=== PATIENT | male | born 1955 | race Caucasian/White ===

== ENCOUNTER 2016-11-11 19:23 | Observation (INO) | payer BC ==
--- NOTE | 2016-11-11 19:36 | EDPHY ---
H & P Stated Complaint: dizzy cp tightness Time Seen by Provider: 11/11/16 19:31 HPI/ROS: CHIEF COMPLAINT: Palpitations, dyspnea, dizziness, chest pressure HISTORY OF PRESENT ILLNESS: The patient presents to the ED with several days of palpitations, dyspnea, dizziness and mild chest pressure. The patient states his symptoms began while helping his daughter recover from a medical illness in [place] several days ago. The patient returned today and felt poorly seeking care in the ED this evening. The patient does report a prior history of atrial fibrillation in 2013 which she attributes to dehydration. He was treated with cardioversion at that time. The patient does have a history of hypertension and takes Bystolic. The patient denies history of significant coronary artery disease. Past surgical history noteworthy only for remote history of forearm surgery in 2014. The patient denies any asymmetric calf pain or swelling. The patient denies pleuritic chest pain. He has no history of prolonged immobilization or prior history of PE/DVT. REVIEW OF SYSTEMS: A comprehensive 10 point review of systems is otherwise negative aside from elements mentioned in the history of present illness. Source: Patient - Personal History Current Tetanus/Diphtheria Vaccine: Unsure Current Tetanus Diphtheria and Acellular Pertussis (TDAP): Unsure - Medical/Surgical History Hx Asthma: No Hx Chronic Respiratory Disease: No Hx Diabetes: No Hx Cardiac Disease: No Hx Renal Disease: No Hx Cirrhosis: No Hx Alcoholism: No Hx HIV/AIDS: No Hx Splenectomy or Spleen Trauma: No - Social History Smoking Status: Never smoked - Physical Exam Exam: General Appearance: Alert, no distress Eyes: Pupils equal and round no pallor or injection ENT, Mouth: Mucous membranes moist Respiratory: There are no retractions, lungs are clear to auscultation Cardiovascular: Tachycardic, irregular consistent with atrial fibrillation Gastrointestinal: Abdomen is soft and nontender, no masses, bowel sounds normal Neurological: A&O, normal motor function, normal sensory exam, normal cranial nerves Skin: Warm and dry, no rashes Musculoskeletal: Neck is supple nontender Extremities: symmetrical, full range of motion Constitutional: Initial Vital Signs Temperature (C) 36.8 C 11/11/16 19:26 Heart Rate 98 11/11/16 19:26 Respiratory Rate 18 11/11/16 19:26 Blood Pressure 148/108 H 11/11/16 19:26 O2 Sat (%) 97 11/11/16 19:26 O2 Delivery Mode Nasal Cannula O2 (L/minute) 2 Allergies/Adverse Reactions: Penicillins Allergy (Verified 11/11/16 19:25) Home Medications: Medication Instructions Recorded Aspirin 11/11/16 Bystolic 11/11/16 Medical Decision Making - Diagnostics EKG Interpretation: EKG: Complete interpretation has been separately recorded in the [facility] archive. Summary impression: Atrial fibrillation, rate 143, nonspecific ST T wave changes are noted Imaging Results: Imaging Impressions Chest X-Ray 11/11/16 19:43 Impression: Moderate cardiac enlargement, with pulmonary vascular congestion. ED Course/Re-evaluation: The patient presents to the emergency department with atrial fibrillation with rapid ventricular response. The patient's heart rate is 153. He is noted to have nonspecific ST T wave changes on his EKG. The patient was placed on a potline monitor. The patient received 25 mg of IV diltiazem bolus followed by the initiation of a diltiazem drip. I reviewed the patient's past medical records. The patient was reexamined at 9:00 p.m.. His heart rate is currently in the 90s however he continues to be in atrial fibrillation. The patient does have a slightly elevated proBNP. Chest x-ray demonstrates very mild pulmonary venous congestion. The patient will also be provided a 20 mg dose of IV Lasix. The patient will be admitted to the hospitalist service this evening. I discussed the case with Dr. Florencio Gatica at 9:15 p.m.. The patient was given 120 mg SC Lovenox. The patient will be admitted to the PCU monitored floor this evening. Differential Diagnosis: Differential diagnosis considered includes acute coronary syndrome, atrial fibrillation with rapid ventricular response, ventricular tachycardia, dehydration, pulmonary embolism, congestive heart failure - Data Points Laboratory Results: Laboratory Results 11/11/16 18:46 11/11/16 18:46 11/11/16 11/11/16 11/11/16 18:46 18:46 18:46 WBC 8.43 10^3/uL 10^3/uL (3.80-9.50) RBC 4.64 10^6/uL 10^6/uL (4.40-6.38) Hgb 15.1 g/dL g/dL (13.7-17.5) Hct 43.4 % % (40.0-51.0) MCV 93.5 fL fL (81.5-99.8) MCH 32.5 pg pg (27.9-34.1) MCHC 34.8 g/dL g/dL (32.4-36.7) RDW 13.1 % % (11.5-15.2) Plt Count 186 10^3/uL 10^3/uL (150-400) MPV 9.9 fL fL (8.7-11.7) Neut % (Auto) 69.6 % % (39.3-74.2) Lymph % (Auto) 22.5 % % (15.0-45.0) Campbell % (Auto) 6.2 % % (4.5-13.0) Eos % (Auto) 0.8 % % (0.6-7.6) Baso % (Auto) 0.4 % % (0.3-1.7) Nucleat RBC Rel Count 0.0 % % (0.0-0.2) Absolute Neuts (auto) 5.87 10^3/uL 10^3/uL (1.70-6.50) Absolute Lymphs (auto) 1.90 10^3/uL 10^3/uL (1.00-3.00) Absolute Monos (auto) 0.52 10^3/uL 10^3/uL (0.30-0.80) Absolute Eos (auto) 0.07 10^3/uL 10^3/uL (0.03-0.40) Absolute Basos (auto) 0.03 10^3/uL 10^3/uL (0.02-0.10) Absolute Nucleated RBC 0.00 10^3/uL 10^3/uL (0-0.01) Immature Gran % 0.5 % % (0.0-1.1) Immature Gran # 0.04 10^3/uL 10^3/uL (0.00-0.10) PT 13.8 SEC SEC (12.0-15.0) INR 1.07 (0.83-1.16) D-Dimer TNP Sodium 139 mEq/L mEq/L (134-144) Potassium 3.5 mEq/L mEq/L (3.5-5.2) Chloride 106 mEq/L mEq/L (97-110) Carbon Dioxide 23 mEq/l mEq/l (22-31) Anion Gap 10 mEq/L mEq/L (8-16) BUN 15 mg/dL mg/dL (7-23) Creatinine 1.0 mg/dL mg/dL (0.7-1.3) Estimated GFR > 60 Glucose 103 mg/dL H mg/dL (70-100) Calcium 9.0 mg/dL mg/dL (8.5-10.4) Troponin I < 0.012 ng/mL ng/mL (0-0.034) NT-Pro-B Natriuret Pep 3480 pg/mL H pg/mL (0-125) Medications Given: Discontinued Medications Diltiazem HCl (Cardizem 25 Mg/5 Ml Vial) 25 mg IVP EDNOW ONE Stop: 11/11/16 19:45 Last Admin: 11/11/16 19:53 Dose: 25 mg Sodium Chloride (Ns) 500 mls @ 0 mls/hr IV ONCE ONE PRN Reason: As Directed Stop: 11/11/16 19:44 Last Admin: 11/11/16 19:53 Dose: 500 mls Diltiazem HCl 125 mg/ Dextrose 125 mls @ 0 mls/hr IV EDNOW ONE; Titrate PRN Reason: Protocol Stop: 11/11/16 19:45 Last Admin: 11/11/16 20:10 Dose: 125 mls Departure - Departure Disposition: [facility] Inpatient Acute Clinical Impression: Atrial fibrillation with RVR, Pulmonary edema Condition: Good
--- NOTE | 2016-11-11 19:38 | CPEKG ---
Heart Rate: 153 RR Interval: 392 QRSD Interval: 96 QT Interval: 320 QTC Interval: 511 QRS [place]: 14 T Wave [place]: -44 EKG Severity - ABNORMAL ECG - EKG Impression: ATRIAL FIBRILLATION EKG Impression: REPOLARIZATION ABNORMALITY, PROB RATE RELATED EKG Impression: PROLONGED QT INTERVAL Electronically Signed By: Manjinder Dale 11-Nov-2016 22:09:19
[2016-11-11] MEDS ORDERED: NS 500 ML IV ONE (19:43)
[2016-11-11] MEDS ORDERED: DILTIAZEM 25 MG/5 ML VIAL IVP ONE (19:44)
[2016-11-11] MEDS ORDERED: DILTIAZEM 125 MG in D5W 125 ML IV ONE (19:44)
[2016-11-11 19:57] LABS: % IMMATURE GRANULYOCYTES 0.5 % (0.0-1.1); ABSOLUTE IMMATURE GRANULOCYTES 0.04 10^3/uL (0.00-0.10); ADD DIFF? NO; ADD MORPH? NO; ADD SCAN? NO; ATYPICAL LYMPHOCYTE FLAG 0 (0-99); FRAGMENT RBC FLAG 0 (0-99); HEMATOCRIT 43.4 % (40.0-51.0); HEMOGLOBIN 15.1 g/dL (13.7-17.5); LEFT SHIFT FLG 0 (0-99); LIPEMIA HEMOLYSIS FLAG 90 (0-99); MEAN CELL HEMOGLOBIN 32.5 pg (27.9-34.1); MEAN CELL HEMOGLOBIN CONCENTR. 34.8 g/dL (32.4-36.7); MEAN CELL VOLUME 93.5 fL (81.5-99.8); MEAN PLATELET VOLUME 9.9 fL (8.7-11.7); PLATELET CLUMPS FLAG 10 (0-99); PLATELET COUNT 186 10^3/uL (150-400); RED BLOOD CELL COUNT 4.64 10^6/uL (4.40-6.38); RED CELL DISTRIBUTION WIDTH 13.1 % (11.5-15.2)
[2016-11-11 20:06] LABS: ANION GAP 10 mEq/L (8-16); CARBON DIOXIDE 23 mEq/l (22-31); CHLORIDE 106 mEq/L (97-110); GLOMERULAR FILTRATION RATE > 60; GLUCOSE 103 mg/dL (70-100); POTASSIUM 3.5 mEq/L (3.5-5.2); SODIUM 139 mEq/L (134-144)
[2016-11-11 20:17] LABS: TROPONIN I < 0.012 ng/mL (0-0.034)
[2016-11-11] MEDS ORDERED: FUROSEMIDE 20 MG/2 ML VIAL ONE (21:05)
[2016-11-11 21:06] LABS: INR 1.07 (0.83-1.16); PROTIME(PATIENT) 13.8 SEC (12.0-15.0)
[2016-11-11] MEDS ORDERED: ONDANSETRON 4 MG/2 ML VIAL IVP PRN (23:28)
[2016-11-11] MEDS ORDERED: ONDANSETRON DISINTEGRATING 4 MG TAB PO PRN (23:28)
[2016-11-11] MEDS ORDERED: ACETAMINOPHEN 325 MG TAB PO PRN (23:28)
[2016-11-11] MEDS ORDERED: DILTIAZEM 125 MG in D5W 125 ML IV SCH (23:30)
[2016-11-11] MEDS ORDERED: hydrALAZINE 25 MG TAB PO PRN (23:33)
[2016-11-11] MEDS ORDERED: ENOXAPARIN 120 MG/0.8 ML SYR SC ONE (23:45)
--- NOTE | 2016-11-12 00:09 | GHP ---
[f rep st] HISTORY AND PHYSICAL DATE OF ADMISSION: 11/11/2016 CHIEF COMPLAINT: Atrial fibrillation with RVR. HISTORY OF PRESENTING ILLNESS: The patient is a pleasant 60-year-old male with history of paroxysmal atrial fibrillation, hypertension, presenting with shortness of breath, chest pressure and dizziness since . He says he has felt symptoms since of being in atrial fib. He was in [place] helping his daughter with a surgery, thus, was not able to seek medical care up until today. He felt his heart racing. Denies overt chest pain with radiation or diaphoresis. The last episode of atrial fibrillation was in 2012; at that time, he was cardioverted. Denies any fevers, chills, or sweats. Denies lower extremity edema, PND or orthopnea. REVIEW OF SYSTEMS: I completed a 10-point review of systems, negative except as noted in HPI. PAST MEDICAL HISTORY: 1. Hypertension. 2. Paroxysmal atrial fibrillation. [id number] score 1. Cardioversion 2012. 3. Nosebleeds requiring cauterization several months ago. PAST SURGICAL HISTORY: 1. 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 2. Bone spur. 3. Tonsillectomy. SOCIAL HISTORY: Lives in [place] with his . Social alcohol. No tobacco or illicits. FAMILY HISTORY: Father with cancer. ALLERGIES: Penicillin. HOME MEDICATIONS: Aspirin 81 mg daily. Bystolic 10. Losartan 100. Norvasc 10. Spironolactone 25. PHYSICAL EXAM: VITAL SIGNS: Temperature 37.1, blood pressure 148/108, heart rates 100 to 150s, respirations 18, 98% on room air. GENERAL: Male sitting in bed, no acute distress. HEENT: PERRLA, EOMI. Oropharynx clear. CV: Irregularly irregular. No murmurs, gallops, or rubs. +2 lower extremity edema. LUNGS: No crackles bilaterally. ABDOMEN: Soft, nontender, nondistended. Positive bowel sounds. : No suprapubic tenderness. No Richardson. MUSCULOSKELETAL: 5/5 upper and lower extremity strength. Large surgical scar, graft site on left forearm, partial amputation of left thumb. NEURO: 2 through 12 intact. PSYCH: Alert and oriented x3. LABS: WBC is 8, hemoglobin 15, hematocrit 43, platelets 186. Coags within normal. Sodium 139, potassium 3.5, chloride 106, carbon dioxide 23, BUN 15, creatinine 1, glucose 103, calcium 9. Troponin less than 0.02. BNP is 3480. EKG is personally reviewed by me: Atrial fibrillation with a heart rate of 150. Chest x-ray is personally reviewed by me: Mild pulmonary congestion. ASSESSMENT AND PLAN: 1. Atrial fibrillation with rapid ventricular response: last episode was in 2012 and cardioverted then. Continue diltiazem drip overnight, have Cardiology evaluate. Check TSH and echocardiogram. [id number] score is 1. He is currently on an aspirin, but can argue full anticoagulation with recurrence. Lovenox overnight. Troponin is negative. 2. Accelerated hypertension. Continue home medications. 3. Volume overload: suspect due to rapid atrial fibrillation. TTE pending. Dosed Lasix in ER and will give another dose in the morning. Monitor electrolytes. 4. Diet: Cardiac, low salt. 5. DVT prophylaxis: On Lovenox. 6. Disposition: Patient warrants observation admission given atrial fibrillation requiring cardiac monitoring, diltiazem drip and IV Lasix. /[id number]/MODL MTDD
[2016-11-12 05:28] LABS: ANION GAP 9 mEq/L (8-16); CALCIUM 8.7 mg/dL (8.5-10.4); CARBON DIOXIDE 27 mEq/l (22-31); CHLORIDE 106 mEq/L (97-110); CREATININE 0.9 mg/dL (0.7-1.3); GLOMERULAR FILTRATION RATE > 60; GLUCOSE 94 mg/dL (70-100); MAGNESIUM 2.1 mg/dL (1.6-2.3); POTASSIUM 3.4 mEq/L (3.5-5.2); SODIUM 142 mEq/L (134-144)
[2016-11-12] MEDS ORDERED: PROTOCOL POTASSIUM 1 DOSE MISC PRN (08:54)
[2016-11-12] MEDS ORDERED: FUROSEMIDE 20 MG/2 ML VIAL IVP SCH (09:00)
[2016-11-12] MEDS ORDERED: OMEGA-3 FATTY ACIDS 1,000 MG CAP PO SCH (09:00)
[2016-11-12] MEDS ORDERED: ENOXAPARIN 120 MG/0.8 ML SYR SC SCH (09:00)
[2016-11-12] MEDS ORDERED: ASPIRIN 81 MG CHEWABLE TAB PO SCH (09:00)
[2016-11-12] MEDS ORDERED: NEBIVOLOL HCL 5 MG TAB PO SCH (09:00)
[2016-11-12] MEDS ORDERED: SPIRONOLACTONE 25 MG TAB PO SCH (09:00)
[2016-11-12] MEDS ORDERED: Herbals/Supplements -Info Only PO SCH (09:00)
[2016-11-12] MEDS ORDERED: GLUCOSAMINE SULF 500 MG CAP PO SCH (09:00)
[2016-11-12] MEDS ORDERED: LOSARTAN POTASSIUM 50 MG TAB PO SCH ×2 (09:00)
[2016-11-12] MEDS ORDERED: POTASSIUM CL 10 MEQ TAB PO ONE ×3 (09:23→20:18)
--- NOTE | 2016-11-12 10:09 | HOSPPROG ---
Hospitalist Progress Note Assessment/Plan: DIAGNOSES: -atrial fibrillation with rapid ventricular rate -acute congestive heart failure due to arrhythmia, question if any other new anatomic or functional heart abnormalities The patient comes in with reasonably good rate control on beta pee. It is unclear why he has had as much trouble with this atrial fibrillation given good heart rate and previously normal heart function otherwise. It will be important to see if there is any new change in heart anatomy are function so echocardiogram is pending. I reviewed with Dr. Santana Saunders he will review this and visit with the patient. If there is no new fixable functional anatomic change, then he probably is not going to tolerate atrial fibrillation with rate control and an antiarrhythmic would be important. Sotalol would be reasonable given his age in overall good health. PLANS: Await echocardiogram and review that with Dr. Saunders and the patient Further decisions after the echocardiogram: Is possible that either cardioversion anti rhythmic would be a good plan, with the other option being an ablation procedure. If there is some abnormality on the echo there may be other medical or other interventions. SUBJECTIVE: Feels better with less shortness of breath and less chest tightness today No palpitations OBJECTIVE Vitals reviewed: Heart rate has been between mid 90s and 105 fairly steadily, normal blood pressure respirations no fever Gang Rider, my review: Atrial fibrillation with mildly elevated heart rate He has a net diuresis of 1500 mL overnight Exam: alert oriented skin warm dry color ok resps not labored lungs clear BSs heart irregular abd soft nondistended nontender, bowel sounds present limbs warm, no edema iv site ok Lab data potassium a bit low today 3.4 likely due to diuretic Objective: Vital Signs Temp Pulse Resp BP Pulse Ox 36.8 C 108 H 15 100/73 98 11/12/16 07:00 11/12/16 09:19 11/12/16 07:00 11/12/16 09:19 11/12/16 07:00 Laboratory Results 11/12/16 03:24 11/11/16 11/12/16 11/13/16 06:59 06:59 06:59 Intake Total 509.3 Output Total 2100 Balance -1590.7 PT 13.8 SEC (12.0-15.0) 11/11/16 18:46 INR 1.07 (0.83-1.16) 11/11/16 18:46 ICD10 Worksheet Patient Problems: Problems Problem Status Onset Atrial fibrillation with RVR Acute Pulmonary edema Acute
[2016-11-12 10:28] LABS: POTASSIUM 3.4 mEq/L (3.5-5.2)
[2016-11-12] MEDS ORDERED: NS 1,000 ML IV SCH (12:30)
--- NOTE | 2016-11-12 13:19 | ECHO ---
[id number] + + [address] : : [place] [address] : : [phone] + + Adult Echocardiographic Report + ------+ :Name: NEFTALI COTA Vi Date: 11/12/2016 09:15 AM : : Hospital Admission Number: [id number] Locatio n: 200: :: 1955 Gender: Male Height: 76 in : :Age: 60 yrs Race: WH Weight: 291 lb : :Reason For Study: Atrial Fibrillation : : BSA: 2.6 meters 2 : + ------+ MMode/2D Measurements \T\ Calculations IVSd: 1.3 cm LVIDd: 5.6 cm FS: 27.8 % Ao root diam: LVPWd: 1.3 cm LVIDs: 4.1 cm EDV(Teich): 3.9 cm 155.9 ml LA dimension: ESV(Teich): 4.6 cm 73.0 ml EF(Teich): 53.2 % LVLd ap4: 8.2 cm SV(MOD-sp4): EDV(MOD-sp4): 64.0 ml 95.0 ml LVLs ap4: 7.2 cm ESV(MOD-sp4): 31.0 ml EF(MOD-sp4): 67.4 % Normal Measurement Values: + + :LVIDd (3.5-5.7cm) IVSd (0.6-1.1cm) LVPWd (0.6-1.1cm) Aortic Root (2.0-3.7cm)Left Atrium (1.5-4.0cm): :LV Vol(d) (76-115ml) LV Vol(s) (29-48ml) Ejec Fraction (50-65%)PV Abdiel (0.6- 1.2m/s) TV Abdiel (0.4-1.0m/s) : :MV E Abdiel (0.8-1.0m/s)MV A Abdiel (0.3-1.0m/s)LVOT Abdiel (0.7-1.2m/s) Asc Ao Abdiel ( 0.9-1.8m/s) : + + Doppler Measurements \T\ Calculations MV E max abdiel: 84.9 cm/sec Ao V2 max: 99.1 cm/sec Ao max P.9 mmHg Left Ventricle The left ventricle is normal in size. There is mild concentric left ventricular hypertrophy. Left ventricular systolic function is low normal. No regional wall motion abnormalities noted. Right Ventricle The right ventricle is normal in size and function. RV false tendon. The right ventricular systolic function is normal. Atria The left atrial size is normal. Right atrial size is normal. The interatrial septum is intact with no evidence for an atrial septal defect. Mitral Valve The mitral valve is normal in structure and function. There is no evidence of mitral valve prolapse. There is no mitral valve stenosis. There is trace mitral regurgitation. Tricuspid Valve Normal tricuspid valve. There is trace tricuspid regurgitation. Aortic Valve The aortic valve opens well. The aortic valve is trileaflet. There is no aortic stenosis. There is no aortic insufficiency. Pulmonic Valve The pulmonic valve is not well visualized. There is no pulmonic valvular regurgitation. Great Vessels The aortic root is normal size. Pericardium/Pleural There is no pericardial effusion. Conclusion A complete two-dimensional transthoracic echocardiogram was performed (2D, M-mode, Doppler and color flow Doppler). Technically limited study with poor acoustic windows. The rhythm is atrial fibrillation. Left ventricular systolic function is low normal. There are no regional wall motion abnormalities. There is mild concentric left ventricular hypertrophy. Valvular appearance is normal. There is trace mitral regurgitation. There is trace tricuspid regurgitation. Cannot estimated RVSP. Final Reading Physician: Alea Finney signed on 11/12/2016 01:18 PM Ordering Physician: Jennifer Leyva Performed By: Cherelle Grace, YUNGCS
--- NOTE | 2016-11-12 13:29 | GCON ---
[f rep st] CONSULTATION CARDIOLOGY CONSULTATION. DATE OF CONSULTATION: 11/12/2016 PRIMARY CARDIOLOGY PROVIDER: Souleymane Pantoja. We are asked by Dr. Toscano to evaluate Mr. Dey for his atrial fibrillation and possible new ons et of CHF. HISTORY OF PRESENT ILLNESS: The patient is a 60-year-old male with a history of paroxysmal atrial f ibrillation, hypertension, and edema, who reports onset of palpitations about 5 days ago. He was he lping his daughter after surgery. He did feel symptoms were similar to his previous bout of atrial fibrillation. He was admitted at [facility] at that time in 2012, and was tried on IV medications without conversion. Ultimately he wound up getting a JOANA cardioversion and felt that katia quinones has not had any issues with atrial fibrillation since then. He denies any PND, orthopnea, presync ope, syncope, or chest pain. He does note some lightheadedness and a feeling of having a tightness in his chest with more which feels more kin to not being able to get a deep breath. He denies any w orsening symptoms on exertion. He does not recall being on anticoagulation after his cardioversion in 2012. He has been on aspirin up until about a year ago. This was stopped in the setting of epis taxis. He denies any heavy alcohol intake, drinking about 1 beer per night. He has not had any rec ent viral illness. He endorses snoring only when he is very tired. He does note some daytime fatig ue but has never been screened for sleep apnea. PAST MEDICAL HISTORY: 1. Hypertension. 2. Paroxysmal atrial fibrillation. 3. Previous epistaxis. PAST SURGICAL HISTORY: 1. Traumatic partial amputation of his left thumb with multiple surgeries and compartment syndrome about a year ago. 2. Bone spur. 3. Tonsillectomy. SOCIAL HISTORY: He lives in [place] with his , Caterina, who is present in the room. He reports 1 beer daily. He denies any tobacco intake. FAMILY HISTORY: Cancer, as well as CVA. ALLERGIES: To penicillin. OUTPATIENT MEDICATIONS: Per med reconciliation. They are listed as spironolactone, glucosamine, om ega-3 fatty acid, losartan, aspirin, nebivolol, and amlodipine. REVIEW OF SYSTEMS: As per HPI. A complete 10-point review of systems was obtained and is negative except for what is dictated. PHYSICAL EXAM: VITAL SIGNS: Blood pressure of 134/106, heart rate 90, respirations 14, O2 saturati on 98% on 1 L. GENERAL: He is a very pleasant male in no apparent distress. EYES: PERRL without scleral icterus. NECK: Supple with midline trachea, without carotid bruit. HEART: Irregularly ir regular without any discernible rubs, gallops, or murmurs. LUNGS: Clear. ABDOMEN: Soft with norm oactive bowel sounds. : Without Richardson present. SKIN: Venous static changes with possible trace edema. PSYCH: Normal mood and affect. NEURO: No focal deficits detected. LABORATORY DATA: CBC with WBC of 8.43, hemoglobin 15.1, hematocrit 43.4, platelet count of 186. BM P with a sodium of 142, potassium 3.4, chloride 106, CO2 of 27, BUN 13, creatinine 0.9, glucose 94, NT proBNP of 3480, TSH of 2.92. Telemetry reviewed, shows atrial fibrillation with CVR at this time . Chest x-ray shows moderate cardiac enlargement with pulmonary vascular congestion. A 12-lead ECG shows atrial fibrillation with rapid ventricular rates. IMPRESSION AND PLAN: The patient is a 60-year-old male who presents with atrial fibrillation. 1. Atrial fibrillation, onset likely within the past 5 days. We reviewed options and patient is ag reeable to JOANA guided cardioversion. Risks, benefits and alternatives were reviewed with him at thi s time. We discussed future management that could include screening, testing for sleep apnea as wel l as EP consultation. He is n.p.o. and we will try to schedule this for today. 2. Hypertension. Blood pressures are suboptimally controlled. He is on several antihypertensives. We will consider more the atypical antihypertensives as an outpatient. 3. Questionable congestive heart failure, likely diastolic given atrial fibrillation with rapid alex tricular response. His NT proBNP is elevated. He does not have any rales, but does have some pulmo nary vascular congestion as well as edema. Potentially he may be treated with diuretic therapy vers us just rhythm control, which likely precipitated his current heart failure symptoms. /[id number]/MODL
[2016-11-12] MEDS ORDERED: PROPOFOL 200 MG/20 ML VIAL ONE (17:02)
[2016-11-12] MEDS ORDERED: LIDOCAINE 2% 5 ML SDV ONE (17:02)
--- NOTE | 2016-11-12 17:44 | CPEKG ---
Heart Rate: 55 RR Interval: 1091 P-R Interval: 188 QRSD Interval: 104 QT Interval: 468 QTC Interval: 448 P [place]: 47 QRS [place]: 9 T Wave [place]: 20 EKG Severity - ABNORMAL ECG - EKG Impression: SINUS RHYTHM EKG Impression: NONSPECIFIC ST-T ABNORMALITIES, ANTERIOR AND LATERAL LEADS EKG Impression: COMPARED WITH PRIOR TRACING, NSR NOW PRESENT, QT SHORTER Electronically Signed By: Parul Monahan 13-Nov-2016 10:45:40
[2016-11-12] MEDS ORDERED: DILTIAZEM CD 180 MG CAP PO SCH (17:45)
[2016-11-12] MEDS ORDERED: APIXABAN 5 MG TAB PO SCH ×2 (18:00→21:00)
[2016-11-12 18:47] VITALS: BP 136/106; PULSE 62; RESP 18; TEMP 98.1; O2SAT 98
--- NOTE | 2016-11-12 18:56 | PDDCSUM ---
Discharge Summary Discharge Summary: I was asked to d.c. this patient because Dr. Mcleod was busy with admissions. I had just done JAONA and CV on this patient earlier today. No complications from procedure. Was admitted with AF with RVR and elevated BNP. Underwent JOANA + CV as noted above. Plan: 1. Start Eliquis 5 mg BID, first dose was given in CVC this evening. 2. D.C. Amlodipine, start diltiazem CD 180 mg daily. 3. Patient to see me in clinic in 4 weeks. He has also been asked to establish with EP in [place], he is moving to [place] in 3 days 4. Start potassium chloride 10 mEq daily 5. New prescriptions were called in to his pharmacy by Li Avalos RN See home med rec for full medication list.
[2016-11-12] MEDS ORDERED: FUROSEMIDE 20 MG/2 ML VIAL IV ONE (21:03)
[2016-11-12] MEDS ORDERED: ENOXAPARIN 120 MG/0.8 ML SYR SC ONE (21:04)
--- NOTE | 2016-11-13 02:48 | CPR ---
[f rep st] NONINVASIVE CARDIAC PROCEDURE REPORT INDICATION: Atrial fibrillation, symptomatic anticoagulation with Lovenox. This evening the patien t will be started on Eliquis. Informed consent was obtained, patient was given IV general anesthesia by Dr. Cornelius Metz. JOANA was done which showed absence of left atrial appendage thrombus. A single 200 joule biphasic synchroni zed DC shock was administered which converted him to sinus rhythm. There were no complications. /[id number]/MODL
== END 2016-11-12 20:16 | disposition home or self-care (01) ==
LOC: F2W 21:16
PROVIDERS: ADMIT Student in an Organized Health Care Education/Training Program; ATTEND Student in an Organized Health Care Education/Training Program
PROC: B245ZZ4 Ultrasonography of Left Heart, Transesophageal (ICD-10-PCS; principal; 2016-11-11)
PROC: 4A023N7 Measurement of Cardiac Sampling and Pressure, Left Heart, Percutaneous Approach (ICD-10-PCS; principal; 2016-11-11)
DX: I48.0 Paroxysmal atrial fibrillation (principal); I10 Essential (primary) hypertension; Z88.0 Allergy status to penicillin
CPT/HCPCS: 71010; 92960; 93005; 93306; 93312; G0378; J1650; J1940; J2704